=== PATIENT | female | born 1990 | race African-American/Black ===

== ENCOUNTER 2021-11-08 18:09 | Emergency (ER) | payer BC, MEDICAID, SELFPAY ==
--- NOTE | 2021-11-08 18:11 | ED.SKABFB ---
HPI - Skin/Abscess/Foreign Bdy General Chief complaint: Skin/Abscess/Foreign Body Stated complaint: itchy irratated skin from bite Time Seen by Provider: 11/08/21 18:11 Source: patient and RN notes reviewed History of Present Illness HPI narrative: Patient is a 31-year-old female who presents the urgent care with complaints of a bite to the posterior right shoulder. Patient states it happened last . States that she feels is gotten larger and more stinging and slightly tender . Patient states that she has not taken anything [id number] for her symptoms. No other acute complaints. No acute distress noted. Patient aware of the plan of care. Some parts of this dictation were generated by voice recognition software and may contain typographical and/or grammatical inaccuracies. Related Data Home Medications Medication Instructions Recorded Confirmed gabapentin 11/08/21 Allergies Allergy/AdvReac Type Severity Reaction Status Date / Time metoclopramide Allergy Intermediate Jittery Verified 09/06/14 11:25 doxycycline Allergy Unknown Verified 08/10/14 16:34 Review of Systems Review of Systems: CONSTITUTIONAL: Denies fever, chills, or sweats. EYES: Denies visual changes, redness, or discharge. ENT: Denies rhinorrhea, congestion, sore throat, or otalgia. CARDIOVASCULAR: Denies chest pain, palpitations, or edema. RESPIRATORY: Denies cough or dyspnea. GASTROINTESTINAL: Denies abdominal pain, nausea, vomiting, or diarrhea. GENITOURINARY: Denies dysuria or hematuria. SKIN: Reports of an insect bite to the posterior right shoulder MUSCULOSKELETAL: Denies back pain, joint pain, or myalgia. NEUROLOGIC: Denies headache, numbness, or weakness. All other systems reviewed are negative, except as documented in HPI. PMFSH Social History Social History Smoking status: Never smoker Alcohol intake: current Comments At the time of my signature, I reviewed and agree with the nursing past medical, surgical, social, and family history. There is no relevant family history pertinent to the patient complaint. Exam Narrative: GENERAL: This is a well-nourished, well-developed patient, in no apparent distress. HEAD: normocephalic, atraumatic. EYES: PERRL. Sclera clear/white. Vision is grossly intact. EARS: External ears normal NOSE: External nose normal with no obvious nasal discharge, nares without redness, no rhinorrhea. THROAT: Mucous membranes moist NECK: Neck supple CARDIOVASCULAR: Regular rate and rhythm without murmurs, gallops, or rubs. RESPIRATORY: Clear to auscultation. Breath sounds equal bilaterally. No wheezes, rales, or rhonchi. SKIN: 4x1cm raised blanching localized reaction to the posterior right shoulder NEURO: awake, alert, and oriented to person, place and time. There were no obvious focal neurologic abnormalities. EXTREMITIES: No clubbing, cyanosis, or edema. Course Course Level of Care: Express Care Visit Vital Signs Vital signs: Vital Signs Temperature 98.5 F 11/08/21 18:17 Pulse Rate 94 11/08/21 18:17 Respiratory Rate 16 11/08/21 18:17 Blood Pressure 148/95 H 11/08/21 18:17 Pulse Oximetry 100 11/08/21 18:17 Temperature 98.5 F 11/08/21 18:17 Pulse Rate 94 11/08/21 18:17 Respiratory Rate 16 11/08/21 18:17 Blood Pressure 148/95 H 11/08/21 18:17 Pulse Oximetry 100 11/08/21 18:17 Reviewed-patient is informed that they may have pre-hypertension or hypertension based on a blood pressure reading in the department. I recommend the patient call the primary care provider listed on their discharge instructions or a physician of their choice this week to arrange follow-up for further evaluation of possible pre-hypertension or hypertension. MDM - Skin/Abscess/Foreign Bdy MDM Narrative Medical decision making narrative: Advised the patient to use hydrocortisone and/or Benadryl cream to the area. Complete the steroid regimen as prescribed. Be sure to eat and drink wi
[2021-11-08 18:17] VITALS: BP 148/95; PULSE 94; RESP 16; TEMP 36.9; O2SAT 100
== END 2021-11-08 18:44 | disposition home or self-care (01) ==
PROVIDERS: Emergency Provider Nurse Practitioner Family
DX: S40.261A Insect bite (nonvenomous) of right shoulder, initial encounter (principal); W57.XXXA Bitten or stung by nonvenomous insect and other nonvenomous arthropods, initial encounter
CPT/HCPCS: 99203; G0463

== ENCOUNTER 2022-01-09 16:55 | Emergency (ER) | payer BC, MEDICAID, SELFPAY ==
[2022-01-09 17:07] VITALS: BP 116/77; PULSE 90; RESP 20; TEMP 36.6; O2SAT 100
--- NOTE | 2022-01-09 17:53 | ED.GENADULT ---
HPI - General Adult General Chief complaint: Extremity Problem,Nontraumatic Stated complaint: ANKLE PAIN/FEET SWELLING/EYE REDNESS Time Seen by Provider: 01/09/22 17:55 Source: patient, RN notes reviewed and old records reviewed Mode of arrival: ambulatory Limitations: no limitations History of Present Illness HPI narrative: 31 year old female who presents to [facility] care with complaints of bilateral leg swelling since Saturday with pain and firm area to the back of right lower leg that is increasingly painful with palpation. Patient denies any trauma to her right leg or known injury. Patient states that she was in the hospital at [facility] on the 03 of December with stroke. Patient reports that she had developed elevated blood pressure, double vision, spotty vision fatigue and light headedness. Patient states she has history of migraines and did see neurology outpatient for headaches while in [place]. Patient states that she completed PT/OT on the 01 of January has no motor deficit on either side of body. She states that her doctor just changed her migraine med to Ubrelvy and she has not yet picked it up. She states that she is not taking any blood thinner. She reports she was taken off of her Depo shots with concern could of related to her symptoms. Patient has taken Ibuprofen for her discomfort with no improvement. MD complaint: pain and swelling with firmness to right posterior right ankle, lower leg Onset (ago): day(s) (3) Severity scale (1-10): 5 Treatments prior to arrival: NSAID Related Data Home Medications Medication Instructions Recorded Confirmed amlodipine 5 mg tablet 5 mg PO DAILY 12/20/21 01/09/22 gabapentin 600 mg tablet 300 mg PO TID 12/20/21 01/09/22 multivitamin 1 tablet PO DAILY 12/20/21 01/09/22 Allergies Allergy/AdvReac Type Severity Reaction Status Date / Time doxycycline Allergy Unknown Rash Verified 01/09/22 21:38 Review of Systems Review of Systems: CONSTITUTIONAL: Denies fever, chills, or sweats. EYES: Denies visual changes, redness, or discharge. ENT: Denies rhinorrhea, congestion, sore throat, or otalgia. CARDIOVASCULAR: Denies chest pain, palpitations, or edema. RESPIRATORY: Denies cough or dyspnea. GASTROINTESTINAL: Denies abdominal pain, nausea, vomiting, or diarrhea. GENITOURINARY: Denies dysuria or hematuria. SKIN: Denies rash or itching. MUSCULOSKELETAL: Denies back pain, positive for pain to posterior aspect of right lower ankle region and lower leg with firmness noted no acute edema to lower extremities noted , myalgia. NEUROLOGIC: Denies headache, numbness, or weakness.moves all extremities on own power PSYCHIATRIC: Denies anxiety or depression. All systems reviewed & are unremarkable except as noted in HPI and below PMFSH Past Medical History Medical History GERD (gastroesophageal reflux disease) Hypertension Migraine Surgical History Surgical History History of appendectomy 2011 Family History Family History Son Asthma Grandparent Hypertension Lung cancer Mother Diabetes mellitus Hypertension Father Diabetes mellitus Hypertension Social History Social History Smoking status: Never smoker Alcohol intake: current Substance use: never Substance use type: does not use Comments At time of signature, agree with nursing past medical, surgical, social and family history. There is no relevant family history pertinent to the presenting complaint Exam Narrative: GENERAL: Well-appearing, well-nourished, and in no acute distress. HEAD: Normocephalic, atraumatic. EYES: PERRLA and EOMI. ENT: Nares clear, no rhinorrhea or epistaxis. Mucous membranes moist.TM's normal with good light reflex, throat pink with no swelling or lesions. NECK:
== END 2022-01-09 18:19 | disposition short-term general hospital (02) ==
PROVIDERS: Emergency Provider Registered Nurse; PCP Family Medicine
DX: M79.661 Pain in right lower leg (principal); M25.571 Pain in right ankle and joints of right foot; K21.9 Gastro-esophageal reflux disease without esophagitis; I10 Essential (primary) hypertension
CPT/HCPCS: 99212; G0463

== ENCOUNTER 2022-01-09 18:34 | Emergency (ER) | payer BC, MEDICAID, SELFPAY ==
--- NOTE | ~2022-01-09 | XR_ITS ---
EXAMINATION: XR chest 2V Exam Date/Time: 01/09/2022 19:20 CDT HISTORY: edema Comparison: None available. RESULT: Lines, tubes, and devices: None. Lungs and pleura: Clear. Cardiomediastinal silhouette: Unremarkable. Other: No acute osseous or upper abdominal finding. IMPRESSION: No acute cardiopulmonary process. Reviewed, dictated and finalized at location K.
[2022-01-09 18:40] VITALS: BP 144/82; PULSE 106; RESP 18; TEMP 36.8; O2SAT 100
[2022-01-09 20:33] LABS: Basophils Percent Auto 0.3 % (0.2-1.2); Eosinophils Absolute Auto 0.1 K/mm3 (0-0.3); Eosinophils Percent Auto 0.9 % (0-4.4); Hematocrit 41.2 % (37.0-47.0); Hemoglobin 13.7 g/dL (12.0-15.0); Immature Granulocyte Absolute 0.01 K/mm3 (0.00-0.031); Immature Granulocyte Percent A 0.1 % (0-0.5); Lymphocytes Absolute Auto 2.78 K/mm3 (0.9-3.2); Lymphocytes Percent Auto 39.8 % (18.3-44.2); Mean Corpuscular HGB Conc 33.3 g/dl (32-36); Mean Corpuscular Hemoglobin 30.5 pg (26-34); Mean Corpuscular Volume 91.8 fl (80-100); Mean Platelet Volume 8.8 fl (7.4-10.4); Monocytes Absolute Auto 0.4 K/mm3 (0.1-0.6); Monocytes Percent Auto 6.3 % (2.6-8.5); Neutrophils Absolute Auto 3.7 K/mm3 (1.3-6.7); Neutrophils Percent Auto 52.6 % (45.5-73.1); Platelet Count Result 357 k/mm3 (150-375); Red Blood Count 4.49 M/mm3 (4.2-5.4); Red Cell Distribution Width 12.2 % (11.5-14.5)
[2022-01-09 20:44] LABS: Partial Thromboplastin Time 28.2 SECONDS (22.3-36.8)
[2022-01-09 20:45] LABS: INR 1.1; Prothrombin Time 14.2 Seconds (11.1-14.7)
[2022-01-09 20:54] LABS: Anion Gap 11 mmol/L (8-16); Blood Urea Nitrogen 10 mg/dL (7-17); Calcium 9.4 mg/dL (8.4-10.2); Carbon Dioxide 25 mmol/L (22-30); Chloride 102 mmol/L (98-107); Estimated CRCL calculation 70 ml/min; Estimated Glomerular Filt Rate > 60; Glucose 105 mg/dL (65-110); Potassium 3.6 mmol/L (3.4-5.0); Sodium 138 mmol/L (137-145)
[2022-01-09 20:57] LABS: D Dimer 0.33 ug/mL (<0.48)
[2022-01-09 21:02] LABS: NT Pro B Type Natriuretic Pept 28 pg/mL (5-100)
[2022-01-09 21:04] LABS: Troponin I < 0.012 ng/mL (0.000-0.034)
--- NOTE | 2022-01-09 22:10 | ED.LOWEXIN ---
HPI - Extremity Injury (Lower) General Chief Complaint: Extremity Injury, Lower Stated Complaint: bilateral swollen legs Time Seen by Provider: 01/09/22 21:34 History of Present Illness HPI Narrative: Pt is a 31 y/o female, presents to ED via POV with bilateral ankle pain and swelling, after starting a new job two weeks ago that requires long hours walking. She denies blunt injury and she has no calf pain or swelling. The right Achilles region is TTP and the dorsal aspect of both feet are also painful. She has taken APAP and Motrin for pain without relief, prompting her visit. She has no additional complaints and she denies any other modifying factors. Related Data Home Medications Medication Instructions Recorded Confirmed amlodipine 5 mg tablet 5 mg PO DAILY 12/20/21 01/09/22 gabapentin 600 mg tablet 300 mg PO TID 12/20/21 01/09/22 multivitamin 1 tablet PO DAILY 12/20/21 01/09/22 Allergies Allergy/AdvReac Type Severity Reaction Status Date / Time doxycycline Allergy Unknown Rash Verified 01/09/22 21:38 Review of Systems Musculoskeletal: Comments: refer to [facility] Past Medical History Medical History GERD (gastroesophageal reflux disease) Hypertension Migraine Surgical History Surgical History History of appendectomy 2012 Family History Family History Son Asthma Grandparent Hypertension Lung cancer Mother Diabetes mellitus Hypertension Father Diabetes mellitus Hypertension Social History Social History Smoking status: Never smoker Alcohol intake: current Substance use: never Substance use type: does not use Exam Const: General: healthy appearing, no acute distress and alert Orientation/consciousness: patient oriented x3 Limitations: no limitations HENMT: Head: normal to inspection Eyes: Conjunctivae: conjunctivae normal EOM: EOMs intact bilaterally Direct Ophthalmoscopy: no photophobia Neck: Neck: normal visual inspection, no lymphadenopathy and no meningeal signs Resp: Effort & Inspection: normal respiratory effort Auscultation: clear to auscultation bilaterally Cardio: Rate: regular rate Rhythm: regular rhythm Other: HR 84 Skin: General skin exam: normal color Rashes: no rashes Wounds: no wounds Neuro: General: patient oriented x3, moves all extremities, no meningeal signs, no focal motor deficits and CN's II-XI intact bilaterally Cranial nerves: Yes Nystagmus not present Speech: normal speech Extrem: Other: Pt is TTP over the Achilles tendon insertion at the calcaneus bilaterally. There is no ROM deficit, no crepitus. No calf tenderness or swelling. The dorsal aspects of the feet are no longer swollen but patient reports tenderness is present; worse with weight bearing. Course Vital Signs Vital signs: Vital Signs Temperature 36.8 C 01/09/22 18:40 Pulse Rate 106 H 01/09/22 18:40 Respiratory Rate 18 01/09/22 18:40 Blood Pressure 144/82 H 01/09/22 18:40 Pulse Oximetry 100 01/09/22 18:40 Oxygen Delivery Room Air 01/09/22 18:40 Temperature 36.8 C 01/09/22 18:40 Pulse Rate 106 H 01/09/22 18:40 Respiratory Rate 18 01/09/22 18:40 Blood Pressure 144/82 H 01/09/22 18:40 Pulse Oximetry 100 01/09/22 18:40 Oxygen Delivery Room Air 01/09/22 18:40 MDM - Extremity Injury (Lower) MDM Narrative Medical decision making narrative: serum work up is unremarkable, negative D dimer, normal BNP, all other labs WNL. Plan to discharge home with NSAIDs, podiatry referral for FU, supportive shoes are stressed, RICE. Pt is agreeable with plan. Differential Diagnosis Differential diagnosis: Likely ankle sprain and strain and other Medical Records Medical records narrative: Achilles tendinitis Lab Data Res
== END 2022-01-09 22:38 | disposition home or self-care (01) ==
PROVIDERS: Emergency Medicine; Emergency Provider Nurse Practitioner Family; PCP Family Medicine
DX: M76.61 Achilles tendinitis, right leg (principal); K21.9 Gastro-esophageal reflux disease without esophagitis; I10 Essential (primary) hypertension
CPT/HCPCS: 36415; 71046; 80048; 83880; 84484; 85025; 85380; 85610; 85730; 99284

== ENCOUNTER 2022-05-02 15:43 | Outpatient (CLI) | payer BC, SELFPAY ==
[2022-05-02 19:32] LABS: Hemoglobin A1C 5.4 % (<5.7)
== END 2022-05-02 15:44 | disposition home or self-care (01) ==
LOC: ANHGOSHLAB 15:44
PROVIDERS: PCP Family Medicine; Visit Provider Family Medicine
DX: R73.9 Hyperglycemia, unspecified (principal)
CPT/HCPCS: 36415; 83036

== ENCOUNTER 2022-06-01 11:10 | Emergency (ER) | payer BC, SELFPAY ==
[2022-06-01 11:13] VITALS: BP 109/71; PULSE 70; RESP 16; TEMP 36.6; O2SAT 100
--- NOTE | 2022-06-01 11:38 | ED.RECABL ---
HPI - Recheck/Abnormal Lab/Rx General Chief Complaint: Recheck/Abnormal Lab/Rx Stated Complaint: covid testing Time Seen by Provider: 06/01/22 11:24 History of Present Illness HPI narrative: This is a 32-year-old female with past medical history of stroke and hypertension, presenting to the emergency department complaining of bilateral eye redness for the past 3 days. She states she also noted mild sore throat and some right-sided neck discomfort, upper respiratory congestion and mild cough. She denies fevers chills, difficulty breathing or vomiting. Related Data Home Medications Medication Instructions Recorded Confirmed amlodipine 5 mg tablet 5 mg PO DAILY 12/20/21 01/09/22 multivitamin 1 tablet PO DAILY 12/20/21 01/09/22 aspirin 81 mg tablet,delayed 81 mg PO DAILY 05/02/22 release (Aria Low Dose Aspirin) Allergies Allergy/AdvReac Type Severity Reaction Status Date / Time doxycycline Allergy Unknown Rash Verified 06/01/22 11:11 Review of Systems Review of Systems: CONSTITUTIONAL: Denies fever, chills, or sweats. EYES: Redness denies visual changes, or discharge. ENT: rhinorrhea, congestion, sore throat, Denies otalgia. CARDIOVASCULAR: Denies chest pain, palpitations, or edema. RESPIRATORY: Denies cough or dyspnea. GASTROINTESTINAL: Denies abdominal pain, nausea, vomiting, or diarrhea. GENITOURINARY: Denies dysuria or hematuria. SKIN: Denies rash or itching. MUSCULOSKELETAL: Denies back pain, joint pain, or myalgia. NEUROLOGIC: Denies headache, numbness, dizziness, or weakness. PSYCHIATRIC: Denies anxiety or depression. [facility] Past Medical History Medical History (Updated 06/01/22 @ 12:57 by Josep Burns MD) CVA (cerebral vascular accident) GERD (gastroesophageal reflux disease) Hypertension Migraine Surgical History Surgical History History of appendectomy 2011 Family History Family History Son Asthma Grandparent Hypertension Lung cancer Mother Diabetes mellitus Hypertension Father Diabetes mellitus Hypertension Social History Social History Smoking status: Never smoker Alcohol intake: current Substance use: never Substance use type: does not use Lack of Food: Never True Current Housing: I Have Housing Concerned About Future Housing: No Difficulty Paying Gas/Electric Bills: No Difficulty Paying for Meds: No Currently Unemployed: No Education: Master's Degree or Higher Difficulty w/ Childcare or Family Care: No Exam Narrative: GENERAL: Well-developed, well-nourished, and in no acute distress. HEAD: Normocephalic, atraumatic. EYES: PERRLA and EOMI. no scleral injection. No conjunctival injection. No drainage ENT: Nares clear, no rhinorrhea or epistaxis. Mucous membranes moist. Mild oropharyngeal erythema without tonsillar hypertrophy exudate or other lesions. Bilateral TMs pearly reyes nonbulging NECK: Supple. Mild anterior cervical lymphadenopathy on the right without any on the left. No masses. No carotid bruits or JVD CHEST: Clear to auscultation. No respiratory distress. No wheezes rales or rhonchi HEART: Regular rate and rhythm. No murmur heard. Normal peripheral pulses. ABDOMEN: Soft, nontender, nondistended, normal active bowel sounds. EXTREMITIES: Normal range of motion. No edema. SKIN: Warm, dry, no rash. NEURO: No focal deficits. Alert and oriented x3. PSYCH: Normal mood and affect. Course Course Emergency Course: 12:50 - Flu and COVID-negative. I suspect a viral upper respiratory infection. Discussed return emergent precautions including signs/symptoms of bacterial infection and respiratory distress. The patient voiced understanding and is comfortable with the plan. All questions answered to her satisfaction. Vital Signs Vital signs: Vital Signs Temperat
[2022-06-01 12:38] LABS: Influenza A QL RT-PCR Negative (Negative); Influenza B QL RT-PCR Negative (Negative); SARS-CoV-2 RNA PCR Negative
== END 2022-06-01 13:17 | disposition home or self-care (01) ==
LOC: ANHED 11:49
PROVIDERS: Emergency Provider Preventive Medicine Aerospace Medicine; PCP Family Medicine
DX: J06.9 Acute upper respiratory infection, unspecified (principal); Z20.822 Contact with and (suspected) exposure to COVID-19; I10 Essential (primary) hypertension; K21.9 Gastro-esophageal reflux disease without esophagitis; Z86.73 Personal history of transient ischemic attack (TIA), and cerebral infarction without residual deficits
CPT/HCPCS: 87636; 99283

== ENCOUNTER 2022-06-22 08:32 | Outpatient (CLI) | payer BC, SELFPAY ==
[2022-06-22 20:00] LABS: Alanine Aminotransferase 25 U/L (6-35); Aspartate Amino Transferase 31 U/L (14-36)
[2022-06-22 20:19] LABS: Beta HCG Quantitative < 2.39 mIU/ML
== END 2022-06-22 08:33 | disposition home or self-care (01) ==
LOC: ANHGOSHLAB 08:34
PROVIDERS: PCP Internal Medicine; Visit Provider Nurse Practitioner
DX: L50.9 Urticaria, unspecified (principal); L29.9 Pruritus, unspecified; N92.6 Irregular menstruation, unspecified
CPT/HCPCS: 36415; 84450; 84460; 84702

== ENCOUNTER 2022-08-11 08:58 | Outpatient (CLI) | payer BC, MEDICAID, SELFPAY ==
--- NOTE | 2022-08-11 09:05 | ECG_ITS ---
Measurements Intervals [place] Rate: 85 P: 72 MS: 152 QRS: 44 QRSD: 71 T: 48 QT: 381 QTc: 455 Interpretive Statements SINUS RHYTHM WITH SINUS ARRHYTHMIA BASELINE WANDER- I, II, AVR, AVL, AVF NORMAL ECG NO PREVIOUS ECG AVAILABLE FOR COMPARISON Electronically Signed On 08-11-2022 16:28:10 CDT by Jamel Hi D.O.
== END 2022-08-11 08:59 | disposition home or self-care (01) ==
PROVIDERS: PCP Internal Medicine; Visit Provider Anesthesiology
DX: I10 Essential (primary) hypertension (principal); Z01.818 Encounter for other preprocedural examination
CPT/HCPCS: 93005

== ENCOUNTER 2022-11-28 00:47 | Day surgery (SDC) | payer OTHER, SELFPAY ==
--- NOTE | 2022-11-26 14:23 | PC.NURSE ---
Report to the Outpatient Waiting Room, entrance under the green pavilion located off [facility], at time 0930 on date 11/28/22. Planned Procedure Time: 1130. Time changes happen often and if your time is changed the preop area will call you the afternoon before. - You and your visitor will be asked to self-screen and do not enter if you have any COVID symptoms. - A mask is optional within the hospital at this time. Patients may have clear liquids (water, carbonated beverages, clear teas, apple juice) until 3 hours prior to surgery with a maximum of 20 ounces. - No food from midnight until time of surgery Take the following medications with a SIP of water the morning of surgery: AMLODIPINE, GABAPENTIN, HYDROXYZINE, PROPRANOLOL DO NOT STOP ANY OF YOUR OTHER PRESCRIPTION MEDICATIONS PRIOR TO SURGERY ?EXCEPT THE FOLLOWING Medications to discontinue per physician: VITAMINS Date to take last dose: NO MORE UNTIL AFTER SURGERY FOLLOW DR. LIANG'S INSTRUCTIONS REGARDING ASPIRIN Please no make-up, nail angolan, hairspray, perfume, deodorant, or body powder the day of surgery. No jewelry (including any body piercings) or valuables the day of surgery, leave them at home. Please take a shower or bath the night before, or the morning of, surgery with an antibacterial soap. Wear comfortable, loose fitting clothing. - Jewelry must be removed prior to entering the operating room. Rings and piercings that are not removed may be cut off. - The hospital will not accept responsibility for valuables. - Please leave all valuables, including medications, at home the day of surgery. If you are going home after surgery, a licensed sales route driver helper must drive you home. - NO public transportation without another adult if you receive anesthesia. - We recommend that an adult stay with you for 24 hours following discharge. - We also recommend that you do not drive, make important decision, drink alcoholic beverages, or take any drugs that were not prescribed by your health care provider for at least 24 hours after your discharge time. Follow any additional instructions given to you from your surgeon. If you or anyone in your household have experienced Covid symptoms in the past week, please notify your surgeon or the nurse liaison at the phone number below for possible testing. Telephone instructions given to PT - JORDEN SEN and asked if any additional questions and then verbalized understanding. Patient advised to call surgeon office or pre surgery nurse liaison [phone] if any additional questions.
[2022-11-26 14:27] VITALS: BMI 34.0
[2022-11-28] VITALS (10 sets, daily range): BP systolic 99–110; BP diastolic 71–80; PULSE 58–81; RESP 12–20; TEMP 36.1–36.7; O2SAT 97–100
--- NOTE | 2022-11-28 10:08 | PM.IMHP ---
H&P: HPI History of Present Illness Date/Time: 11/28/22 10:08 Chief Complaint: Pelvic pain Narrative: this patient is a 32-year-old female with pelvic pain right ovarian cyst. We have agreed to perform laparoscopic right ovarian cystectomy. She understands that surgery has risk. She understands the procedure in detail. She understands that injuries may occur during the surgery that resulted in hospitalization, surgery, and severe illness. She understands there is risk of hemorrhage infection. She denies any chest pain shortness of breath. She denies any nausea, vomiting, fever, chills. She denies any vaginal bleeding or abnormal vaginal discharge. Review of Systems Review of Systems: All systems reviewed & are unremarkable except as noted in HPI and below Constitutional: Constitutional: Denies chills, Denies fatigue, Denies fever(s) and Denies weakness Eyes: Eyes: Denies blurry vision, Denies change in vision, Denies loss of peripheral vision, Denies loss of vision, Denies other visual disturbances and Denies eye pain ENT: Denies vertigo, Denies dizziness, Denies hearing loss, Denies mouth pain, Denies nasal obstruction, Denies neck mass and Denies neck pain Cardiovascular: Cardiovascular: Denies chest pain, Denies diaphoresis, Denies syncope, Denies leg edema and Denies dyspnea Respiratory: Respiratory: Denies chest congestion, Denies cough, Denies hemoptysis, Denies dyspnea and Denies wheezing Gastrointestinal: Gastrointestinal: Denies abdominal pain, Denies constipation, Denies diarrhea, Denies nausea and Denies vomiting Genitourinary: Genitourinary: Denies hematuria, Denies change in libido, Denies nocturia, Denies genital lesions, Denies flank pain and Denies urinary urgency Musculoskeletal: Musculoskeletal: Denies abnormal gait, Denies back pain, Denies myalgias, Denies arthralgias, Denies joint swelling, Denies muscle weakness and Denies neck pain Integumentary/Breasts: Skin/Breast: Denies swelling, Denies breast pain, Denies breast mass, Denies dry skin, Denies nipple discharge, Denies unusual bruising and Denies jaundice Neurologic: Denies Neuro-related abnormal movements, Denies Abnormal speech present, Denies abnormal gait, Denies behavioral changes, Denies confusion, Denies vertigo, Denies dizziness, Denies syncope, Denies loss of vision, Denies memory loss, Denies convulsions and Denies weakness Psychiatric: Psychiatric: Denies abnormal sleep pattern, Denies behavioral changes, Denies change in libido, Denies confusion, Denies depression, Denies anhedonia and Denies memory loss Endocrine: Endocrine: Reports no additional endocrine complaints, Denies change in libido and Denies fatigue Hematologic/Lymphatic: Hematologic/Lymphatic: Reports no additional hematologic/lymphatic complaints Allergic/Immunologic: Allergic/Immunologic: Reports no additional allergic/immunologic complaints and Denies wheezing PMFSH Past Medical History Medical History CVA (cerebral vascular accident) GERD (gastroesophageal reflux disease) Hypertension Migraine Surgical History Surgical History History of appendectomy 2012 Family History Family History Son Asthma Grandparent Hypertension Lung cancer Mother Diabetes mellitus Hypertension Father Diabetes mellitus Hypertension Social History Social History Smoking status: Never smoker Alcohol intake: current Alcohol use details: 2/MONTH Substance use: never Substance use type: does not use Lack of Transportation: No Lack of Food: Never True Current Housing: I Have Housing Concerned About Future Housing: No Difficulty Paying Gas/Electric Bills: No Difficulty Paying for Meds: No Currently Unemployed: No Education: [employer]
--- NOTE | 2022-11-28 10:10 | WPDHPUPDATE1 ---
History and Physical Update Update Date/Time: 11/28/22 10:10 History and Physical has been reviewed, including an updated exam of the patient. There are NO changes in the patient's condition. Risks, benefits, and alternatives have been discussed and questions answered. Patient agrees to proceed with procedure.
--- NOTE | 2022-11-28 10:10 | WPDANESEPPF ---
Anes - Initial Pre Proc Eval Procedure: Operation Date: 11/28/22 11:30 Proposed Procedures p Laparoscopic Right Ovarian Cystectomy, Hysteroscopy with Cyndee Endometrial Ablation - Ama Boland MD Date/Time: 11/28/22 10:10 Surgeon: Ama Boland MD Pre Op Diagnosis: Cyst Rt Ovary, Menorrhagia Patient Data Age: 32 Gender: F Height: 1.52 m Weight: 79 kg Allergies Allergy/AdvReac Type Severity Reaction Status Date / Time doxycycline Allergy Unknown Rash Verified 11/28/22 09:58 Home Medications Medication Instructions Recorded Confirmed Type multivitamin 1 tablet PO DAILY 12/20/21 11/28/22 History propranolol 20 mg tablet 20 mg PO Q12H #180 tabs 01/08/22 11/28/22 Rx ketoconazole 2 % shampoo 1 applic topical 3XW #120 mL 02/08/22 11/28/22 Rx aspirin 81 mg tablet,delayed 81 mg PO DAILY 05/02/22 11/28/22 History release (Aria Low Dose Aspirin) amlodipine 5 mg tablet 5 mg PO DAILY #90 tabs 06/09/22 11/28/22 Rx ubrogepant 100 mg tablet (Ubrelvy) 100 mg PO ONCE 06/22/22 11/28/22 History gabapentin 600 mg tablet 300 mg PO TID #135 tabs 07/09/22 11/28/22 Rx hydroxyzine HCl 25 mg tablet 25 mg PO QID PRN itching #120 tabs 08/09/22 11/28/22 Rx naproxen 500 mg tablet 500 mg PO BID #60 tabs 09/03/22 11/28/22 Rx Patient hx anesthesia problems: none Family hx anesthesia problems: none Results Review: All pre-operative results and documents have been reviewed as part of the pre-operative evaluation. [facility] Past Medical History Medical History CVA (cerebral vascular accident) GERD (gastroesophageal reflux disease) Hypertension Migraine Surgical History Surgical History History of appendectomy 2011 Family History Family History Son Asthma Grandparent Hypertension Lung cancer Mother Diabetes mellitus Hypertension Father Diabetes mellitus Hypertension Social History Social History Smoking status: Never smoker Alcohol intake: current Alcohol use details: 2/MONTH Substance use: never Substance use type: does not use Lack of Transportation: No Lack of Food: Never True Current Housing: I Have Housing Concerned About Future Housing: No Difficulty Paying Gas/Electric Bills: No Difficulty Paying for Meds: No Currently Unemployed: No Education: Master's Degree or Higher Difficulty w/ Childcare or Family Care: No Living arrangements: with family Spiritual care concerns: No Anes - Eval Final PreProcedure Day of Procedure 11/28/22 10:10 Patient weight: obese Heart: regular rate and rhythm Lungs: clear to auscultation Airway: Mallampati scale class II Neurological: alert and oriented Last oral intake: >/= 8 hours ASA classification: III Emergent: no Anesthetic plan: proceed Anesthesia type and monitoring: general ETT and standard monitoring Results Review: All pre-operative results and documents have been reviewed as part of the pre-operative evaluation. Informed Consent: The patient's anesthetic plan and its attendant risks and benefits were discussed with the patient/family/POA. Questions were solicited and answers provided to the satisfaction of the patient/family/POA.
[2022-11-28] MEDS: ACETAMINOPHEN 500 MG TABLET 1000 MG PO (10:18)
[2022-11-28] MEDS: KETOROLAC 15 MG/ML VIAL (*BKC) IV PUSH (10:18)
[2022-11-28] MEDS: LACTATED RINGERS 1,000 ML 30 ML IV CONT (10:18)
--- NOTE | 2022-11-28 11:36 | W.PM.PROC2 ---
Procedure Note - Detailed Date of Procedure 11/28/22 Pre-op Diagnosis Cyst Rt Ovary, Menorrhagia Post-op Diagnosis Same Procedure Performed Diagnostic laparoscopy Surgeon Ama Boland MD Anesthesia General Indications Pelvic pain Ovarian cyst Findings 4 cm right ovarian cyst. Otherwise normal pelvis. Description of Procedure The patient was taken to the operating room. She was prepped and draped in the dorsal lithotomy position after induction general anesthesia. A 5 mm incision was made with a scalpel on the abdominal skin in the left upper quadrant of the abdomen. A 5 mm trocar was inserted into the intra-abdominal cavity under direct visualization the scope. In the same fashion a 5 mm left lower quadrant trocar was inserted and a 5 mm infraumbilical trocar was inserted. Right ovarian cystectomy was performed using LigaSure cautery and monopolar cautery dome of the cyst capsule was removed, cyst capsule was peeled ovary and the cut surface of the ovary was cauterized and made hemostatic. Hematoma term this also applied to the cut surface. The pelvis was irrigated. The pneumoperitoneum was reduced. The trocars were removed. Skin was closed with subcuticular 4 micro. The patient's incisions were covered with Dermabond. She was taken recovery room in stable condition. Sponge lap and needle counts were correct x2. Estimated Blood Loss 25 Complications No immediate complications Condition Stable Disposition Same day
== END 2022-11-28 13:24 | disposition home or self-care (01) ==
PROVIDERS: PCP Family Medicine; Visit Provider Obstetrics & Gynecology
PROC: 0UDB8ZZ Extraction of Endometrium, Via Natural or Artificial Opening Endoscopic (ICD-10-PCS; CPT 58558; principal; 2022-11-28 11:30)
DX: N83.01 Follicular cyst of right ovary (principal); I10 Essential (primary) hypertension; K21.9 Gastro-esophageal reflux disease without esophagitis; Z86.73 Personal history of transient ischemic attack (TIA), and cerebral infarction without residual deficits; Z79.82 Long term (current) use of aspirin
CPT/HCPCS: 58662; 88305; A9270; J1100; J1170; J1885; J2250; J2405; J2704; J2710; J3010; J7030; J7120

== ENCOUNTER 2022-12-26 09:09 | Emergency (ER) | payer BC, OTHER, SELFPAY ==
[2022-12-26 09:18] VITALS: BP 105/75; PULSE 83; RESP 16; TEMP 36.2; O2SAT 100
--- NOTE | 2022-12-26 09:23 | ED.URI ---
HPI - URI/Sore Throat General Chief Complaint: Upper Respiratory Infection Stated Complaint: COUGH Time Seen by Provider: 12/26/22 09:24 Source: patient Mode of arrival: ambulatory Limitations: no limitations History of Present Illness HPI Narrative: Linette is a 32-year-old female patient presenting to the clinic today with complaints of a nonproductive cough, sore throat, and chills. No nasal congestion. She reports that the symptoms have been going on over the last week but is unable to give me an exact time frame as to when her symptoms began. No known sick contacts. Denies smoking or vaping. No history of asthma or COPD. History of bronchitis in the past. MD elicited complaint: cough and sore throat Related Data Home Medications Medication Instructions Recorded Confirmed multivitamin 1 tablet PO DAILY 12/20/21 12/26/22 aspirin 81 mg tablet,delayed 81 mg PO DAILY 05/02/22 12/26/22 release (Aria Low Dose Aspirin) ubrogepant 100 mg tablet (Ubrelvy) 100 mg PO ONCE 06/22/22 12/26/22 Allergies Allergy/AdvReac Type Severity Reaction Status Date / Time doxycycline Allergy Unknown Rash Verified 12/26/22 09:30 Review of Systems Review of Systems: Pertinent positives per HPI. Patient denies any fever, rash, headache, visual changes, dizziness, shortness of breath, chest pain, palpitations, nausea, vomiting, diarrhea, constipation, abdominal pain, or any urinary issues. [facility] Past Medical History Medical History CVA (cerebral vascular accident) GERD (gastroesophageal reflux disease) Hypertension Migraine Surgical History Surgical History History of appendectomy 2011 Family History Family History Son Asthma Grandparent Hypertension Lung cancer Mother Diabetes mellitus Hypertension Father Diabetes mellitus Hypertension Social History Social History Smoking status: Never smoker Alcohol intake: current Alcohol use details: 2/MONTH Substance use: never Substance use type: does not use Lack of Transportation: No Lack of Food: Never True Current Housing: I Have Housing Concerned About Future Housing: No Difficulty Paying Gas/Electric Bills: No Difficulty Paying for Meds: No Currently Unemployed: No Education: Master's Degree or Higher Difficulty w/ Childcare or Family Care: No Living arrangements: with family Spiritual care concerns: No Comments At the time of my signature, I reviewed and agree with the nursing past medical, surgical, social, and family history. There is no relevant family history pertinent to the patient complaint. Exam Narrative: General: Well-developed, well nourished, in no apparent distress Head: Normocephalic, atraumatic Eyes: Pupils equally round and reactive to light bilaterally, EOM intact, sclera and conjunctive clear, no discharge, lids normal Ears: TMs intact and clear, ear canals clear, no drainage, grossly hearing normal. Nose: Nares patent, clear nasal discharge, no inflammation, no sinus tenderness. Mouth: Oral pharynx without lesions or masses, good dentition, MMM. Neck: Supple, trachea midline, no enlargement of anterior or posterior cervical nodes, no thyroid masses or goiter palpable. Cardio: Regular rate and rhythm, s1 and s2 normal, no murmur appreciated. Resp: Clear to auscultation bilaterally, no rhonchi, rales, wheezing or rubs Course Course Emergency Course: Portions of this record may have been created with voice recognition software. Level of Care: Express Care Visit Vital Signs Vital signs: Vital Signs Temperature 36.2 C L 12/26/22 09:18 Pulse Rate 83 12/26/22 09:18 Respiratory Rate 16 12/26/22 09:18 Blood Pressure 105/75 12/26/22 0
== END 2022-12-26 09:50 | disposition home or self-care (01) ==
PROVIDERS: Emergency Provider Nurse Practitioner Family; PCP Family Medicine
DX: B34.9 Viral infection, unspecified (principal); R05.1 Acute cough; Z20.822 Contact with and (suspected) exposure to COVID-19; K21.9 Gastro-esophageal reflux disease without esophagitis; I10 Essential (primary) hypertension; Z86.73 Personal history of transient ischemic attack (TIA), and cerebral infarction without residual deficits
CPT/HCPCS: 87081; 87426; 87804; 87880; 99213; C9803; G0463

== ENCOUNTER 2023-05-15 11:01 | Outpatient (CLI) | payer BC, OTHER, SELFPAY ==
[2023-05-15 11:40] LABS: Basophils Percent Auto 0.3 % (0.2-1.2); Eosinophils Absolute Auto 0.1 K/mm3 (0-0.3); Eosinophils Percent Auto 1.3 % (0-4.4); Hematocrit 42.5 % (37.0-47.0); Hemoglobin 13.7 g/dL (12.0-15.0); Immature Granulocyte Absolute 0.01 K/mm3 (0.00-0.031); Immature Granulocyte Percent A 0.2 % (0-0.5); Lymphocytes Percent Auto 43.6 % (18.3-44.2); Mean Corpuscular HGB Conc 32.2 g/dl (32-36); Mean Corpuscular Hemoglobin 29.6 pg (26-34); Mean Corpuscular Volume 91.8 fl (80-100); Mean Platelet Volume 8.9 fl (7.4-10.4); Monocytes Absolute Auto 0.4 K/mm3 (0.1-0.6); Monocytes Percent Auto 6.7 % (2.6-8.5); Neutrophils Absolute Auto 2.9 K/mm3 (1.3-6.7); Neutrophils Percent Auto 47.9 % (45.5-73.1); Platelet Count Result 351 k/mm3 (150-375); Red Blood Count 4.63 M/mm3 (4.2-5.4); Red Cell Distribution Width 12.7 % (11.5-14.5)
[2023-05-15 11:57] LABS: Alanine Aminotransferase 21 U/L (6-35); Albumin Level 4.2 g/dL (3.5-5.1); Alkaline Phosphatase 103 U/L (38-126); Anion Gap 9 mmol/L (8-16); Aspartate Amino Transferase 25 U/L (14-36); Bilirubin,Total 0.4 mg/dL (0.2-1.3); Blood Urea Nitrogen 10 mg/dL (7-17); Calcium 9.2 mg/dL (8.4-10.2); Carbon Dioxide 26 mmol/L (22-30); Chloride 102 mmol/L (98-107); Cholesterol 159 mg/dL (0-200); Estimated Glomerular Filt Rate > 60; Glucose 83 mg/dL (65-110); HDL Direct 36 mg/dL; Potassium 3.9 mmol/L (3.4-5.0); Sodium 137 mmol/L (137-145); Triglycerides 117 mg/dL (<150)
[2023-05-15 12:08] LABS: LDL Cholesterol Direct 79 mg/dL
[2023-05-15 12:41] LABS: Vitamin D 25 Hydroxy 20.3 ng/mL
[2023-05-15 12:55] LABS: Hemoglobin A1C 5.1 % (<5.7)
[2023-05-17 12:22] LABS: NIL 0.05 IU/mL; Quantiferon TB Plus, 1T NEGATIVE (NEGATIVE); TB1-NIL 0.02 IU/mL; TB2-NIL 0.01 IU/mL
== END 2023-05-15 11:02 | disposition home or self-care (01) ==
LOC: ANHLAB 11:03
PROVIDERS: PCP Internal Medicine; Visit Provider Clinical Nurse Specialist
DX: Z13.228 Encounter for screening for other metabolic disorders (principal); E55.9 Vitamin D deficiency, unspecified; R73.9 Hyperglycemia, unspecified; I10 Essential (primary) hypertension; Z11.1 Encounter for screening for respiratory tuberculosis
CPT/HCPCS: 36415; 80053; 80061; 82306; 83036; 84443; 85025; 86480

== ENCOUNTER 2023-06-27 17:27 | Emergency (ER) | payer BC, OTHER, SELFPAY ==
[2023-06-27 17:45] VITALS: BP 120/89; PULSE 99; RESP 16; TEMP 37.2; O2SAT 100
--- NOTE | 2023-06-27 18:13 | ED.GENADULT ---
HPI - General Adult General Chief complaint: Upper Respiratory Infection Stated complaint: Cough;Migraine Source: patient, RN notes reviewed and old records reviewed Mode of arrival: ambulatory Limitations: no limitations History of Present Illness HPI narrative: 33-year-old female presents to [facility] with complaint of headache, myalgia, cough, congestion cold fatigue this started on Saturday. Patient is not taking any [id number] med patients. Patient denies chest pain, dizziness Related Data Home Medications Medication Instructions Recorded Confirmed multivitamin 1 tablet PO DAILY 12/20/21 06/27/23 propranolol 20 mg tablet 20 mg PO DAILY 05/15/23 06/27/23 Allergies Allergy/AdvReac Type Severity Reaction Status Date / Time doxycycline Allergy Unknown Rash Verified 06/27/23 17:45 Review of Systems Constitutional: Constitutional: Reports no additional constitutional complaints, Reports body ache(s), Denies chills, Reports fatigue, Denies fever(s) and Denies headache(s) Eyes: Eyes: Reports no additional eye complaints and Denies blurry vision ENT: Reports system reviewed and no additional complaints, except as documented, Denies vertigo, Denies dizziness, Denies ear discharge, Denies otalgia, Denies facial pain, Reports headache(s), Reports nasal congestion, Reports nasal discharge, Denies sinus pain, Denies sinus pressure and Denies sore throat Cardiovascular: Cardiovascular: Reports no additional cardiovascular complaints, Denies chest pain, Denies chest pain at rest, Denies rapid heart rate and Denies dyspnea Respiratory: Respiratory: Reports no additional respiratory complaints, Denies chest congestion, Reports cough, Denies pain on inspiration, Denies pain with cough and Denies dyspnea Gastrointestinal: Gastrointestinal: Denies abdominal pain, Denies diarrhea, Denies nausea and Denies vomiting Integumentary/Breasts: Skin/Breast: Denies rash Neurologic: Reports system reviewed and no additional complaints, except as documented, Denies vertigo, Denies dizziness and Denies headache(s) Endocrine: Endocrine: Denies fatigue [facility] Past Medical History Medical History CVA (cerebral vascular accident) GERD (gastroesophageal reflux disease) Hypertension Migraine Pelvic floor dysfunction in female Stress bladder incontinence, female Surgical History Surgical History History of appendectomy 2011 Family History Family History Son Asthma Grandparent Hypertension Lung cancer Mother Diabetes mellitus Hypertension Father Diabetes mellitus Hypertension Social History Social History Social History: Caffeine-daily Smoking status: Never smoker Alcohol intake: current Alcohol use details: Social Substance use: never Substance use type: does not use Lack of Transportation: No Lack of Food: Often True Current Housing: I Have Housing Concerned About Future Housing: No Difficulty Paying Gas/Electric Bills: No Difficulty Paying for Meds: No Currently Unemployed: No Education: Master's Degree or Higher Difficulty w/ Childcare or Family Care: No Living arrangements: with family Spiritual care concerns: No Comments At the time of my signature, I reviewed and agree with the nursing past medical, surgical, social, and family history. There is no relevant family history pertinent to the patient complaint. Exam Const: General: cooperative, healthy appearing, no acute distress and well nourished Nutritional Appearance: well nourished Orientation/consciousness: patient oriented x3 Limitations: no limitations HENMT: Head: normal to inspection and normocephalic Ears: external ears normal, TM's normal bilaterally, mastoids normal and Abnormal EAC pr
== END 2023-06-27 18:22 | disposition home or self-care (01) ==
PROVIDERS: Emergency Provider Registered Nurse; PCP Clinical Nurse Specialist
DX: B34.9 Viral infection, unspecified (principal); I10 Essential (primary) hypertension; Z79.899 Other long term (current) drug therapy; Z86.73 Personal history of transient ischemic attack (TIA), and cerebral infarction without residual deficits; Z20.822 Contact with and (suspected) exposure to COVID-19
CPT/HCPCS: 87081; 87426; 87804; 87880; 99213; G0463

== ENCOUNTER 2023-07-01 18:53 | Emergency (ER) | payer BC, OTHER, SELFPAY ==
--- NOTE | ~2023-07-01 | XR_ITS ---
EXAMINATION: XR chest 2V DATE: 07/01/2023 20:45 INDICATION: Chest pain TECHNIQUE: PA and lateral views of the chest were obtained. COMPARISON: Chest radiograph dated 01/09/2022 FINDINGS: The lungs remain clear with no focal airspace opacities, pulmonary edema, pleural effusion or pneumot horax. The cardiomediastinal silhouette is normal. Mild lower thoracic levocurvature. IMPRESSION: 1. No acute cardiopulmonary disease. Reviewed, dictated and finalized at location [employer]. [employer]
[2023-07-01 18:53] VITALS: BP 118/82; PULSE 80; RESP 16; TEMP 36.6; O2SAT 100
--- NOTE | 2023-07-01 18:59 | ECG_ITS ---
Measurements Intervals [place] Rate: 90 P: 59 WV: 152 QRS: 7 QRSD: 79 T: 46 QT: 333 QTc: 409 Interpretive Statements SINUS RHYTHM COMPARED TO ECG 08/11/2022 09:12:52 NO SIGNIFICANT CHANGES Electronically Signed On 07-02-2023 14:56:41 [employer]PERATIONS VICE PRESIDENT by Bar Alejandre M.D.
[2023-07-01 20:33] VITALS: BP 116/80; PULSE 108; RESP 17; TEMP 36.8; O2SAT 99
--- NOTE | 2023-07-01 21:00 | ED.URI ---
HPI - URI/Sore Throat General Chief Complaint: Upper Respiratory Infection Stated Complaint: lost her voice Time Seen by Provider: 07/01/23 20:33 Source: patient Mode of arrival: ambulatory Limitations: no limitations History of Present Illness HPI Narrative: This is a 33 year old female that presents to the ER for cold symptoms present over the last week. Reports cough, congestion, wheezing and sore throat. Reports chest pain with coughing. Denies fevers. Related Data Home Medications Medication Instructions Recorded Confirmed multivitamin 1 tablet PO DAILY 12/20/21 06/27/23 propranolol 20 mg tablet 20 mg PO DAILY 05/15/23 06/27/23 Allergies Allergy/AdvReac Type Severity Reaction Status Date / Time doxycycline Allergy Unknown Rash Verified 06/27/23 17:45 Review of Systems Review of Systems: CONSTITUTIONAL: Denies fever ENT: Reports rhinorrhea, congestion, sore throat CARDIOVASCULAR: Reports chest pain. Denies edema. RESPIRATORY: Reports cough and dyspnea. All systems reviewed & are unremarkable except as noted in HPI and below PMFSH Past Medical History Medical History CVA (cerebral vascular accident) GERD (gastroesophageal reflux disease) Hypertension Migraine Pelvic floor dysfunction in female Stress bladder incontinence, female Surgical History Surgical History History of appendectomy 2011 Family History Family History Son Asthma Grandparent Hypertension Lung cancer Mother Diabetes mellitus Hypertension Father Diabetes mellitus Hypertension Social History Social History Social History: Caffeine-daily Smoking status: Never smoker Alcohol intake: current Alcohol use details: Social Substance use: never Substance use type: does not use Lack of Transportation: No Lack of Food: Often True Current Housing: I Have Housing Concerned About Future Housing: No Difficulty Paying Gas/Electric Bills: No Difficulty Paying for Meds: No Currently Unemployed: No Education: Master's Degree or Higher Difficulty w/ Childcare or Family Care: No Living arrangements: with family Spiritual care concerns: No Exam Narrative: GENERAL: Well-appearing, well-nourished, and in no acute distress. HEAD: Normocephalic, atraumatic. EYES: EOMI. ENT: Nares clear, no rhinorrhea or epistaxis. Mucous membranes moist. Oropharynx without tonsillar hypertrophy exudate or other lesions. Bilateral TMs pearly reyes non-bulging NECK: Supple. No adenopathy or masses. CHEST: Clear to auscultation. No respiratory distress. No wheezes rales or rhonchi HEART: Regular rate and rhythm. No murmur heard. Normal peripheral pulses. EXTREMITIES: Normal range of motion. No edema. SKIN: Warm, dry, no rash. NEURO: No focal deficits. Alert and oriented x3. PSYCH: Normal mood and affect Course Course Emergency Course: Patient updated on her workup and agrees with plan of care. Vital Signs Vital signs: Vital Signs Temperature 98 F 07/01/23 18:53 Pulse Rate 80 07/01/23 18:53 Respiratory Rate 16 07/01/23 18:53 Blood Pressure 118/82 07/01/23 18:53 Pulse Oximetry 100 07/01/23 18:53 Oxygen Delivery Room Air 07/01/23 18:53 Temperature 98.3 F 07/01/23 20:33 Pulse Rate 108 H 07/01/23 20:33 Respiratory Rate 17 07/01/23 20:33 Blood Pressure 116/80 07/01/23 20:33 Pulse Oximetry 99 07/01/23 20:33 Oxygen Delivery Room Air 07/01/23 20:33 MDM - URI/Sore Throat MDM Narrative Medical decision making narrative: Patient presents to the ER for cold symptoms present over the last week. Reports cough, wheezing, congestion and sore throat. Patient is afebrile and nontoxic appearing. Her vitals are stable. Lungs are clear on exam. CBC w
[2023-07-01] MEDS: ALBUTEROL SULFATE (*SP) AEROSOL 1 PUFF 2 PUFF INHALATION (21:35)
[2023-07-01 21:40] LABS: Basophils Percent Auto 0.2 % (0.2-1.2); Eosinophils Percent Auto 0.2 % (0-4.4); Hematocrit 42.4 % (37.0-47.0); Hemoglobin 13.9 g/dL (12.0-15.0); Immature Granulocyte Absolute 0.01 K/mm3 (0.00-0.031); Immature Granulocyte Percent A 0.2 % (0-0.5); Lymphocytes Absolute Auto 2.17 K/mm3 (0.9-3.2); Lymphocytes Percent Auto 44.8 % (18.3-44.2); Mean Corpuscular HGB Conc 32.8 g/dl (32-36); Mean Corpuscular Hemoglobin 29.8 pg (26-34); Mean Platelet Volume 8.5 fl (7.4-10.4); Monocytes Absolute Auto 0.4 K/mm3 (0.1-0.6); Monocytes Percent Auto 9.1 % (2.6-8.5); Neutrophils Absolute Auto 2.2 K/mm3 (1.3-6.7); Neutrophils Percent Auto 45.5 % (45.5-73.1); Platelet Count Result 303 k/mm3 (150-375); Red Blood Count 4.66 M/mm3 (4.2-5.4); Red Cell Distribution Width 12.5 % (11.5-14.5); White Blood Count 4.8 K/mm3 (4.5-10.0)
[2023-07-01 21:46] LABS: Strep Group A RT-PCR NOT DETECTED (Negative)
[2023-07-01 21:57] LABS: Influenza A QL RT-PCR Negative (Negative); Influenza B QL RT-PCR Positive (Negative); RSV RNA, RT-PCR Negative (Negative); SARS-CoV-2 RNA PCR Negative (Negative)
[2023-07-01 21:59] LABS: Alanine Aminotransferase 21 U/L (6-35); Albumin Level 4.3 g/dL (3.5-5.1); Alkaline Phosphatase 93 U/L (38-126); Anion Gap 8 mmol/L (8-16); Aspartate Amino Transferase 34 U/L (14-36); Bilirubin,Total 0.4 mg/dL (0.2-1.3); Blood Urea Nitrogen 9 mg/dL (7-17); Calcium 8.7 mg/dL (8.4-10.2); Carbon Dioxide 26 mmol/L (22-30); Chloride 102 mmol/L (98-107); Estimated CRCL calculation 94 ml/min; Estimated Glomerular Filt Rate > 60; Glucose 102 mg/dL (65-110); Potassium 3.9 mmol/L (3.4-5.0); Sodium 136 mmol/L (137-145)
[2023-07-01 22:06] LABS: Troponin I < 0.012 ng/mL (0.000-0.034)
[2023-07-01 22:53] VITALS: PULSE 91; RESP 15; O2SAT 100
== END 2023-07-01 23:07 | disposition home or self-care (01) ==
PROVIDERS: Emergency Provider Physician Assistant; PCP Clinical Nurse Specialist
DX: J10.1 Influenza due to other identified influenza virus with other respiratory manifestations (principal); Z20.822 Contact with and (suspected) exposure to COVID-19; I10 Essential (primary) hypertension; N39.3 Stress incontinence (female) (male); K21.9 Gastro-esophageal reflux disease without esophagitis; Z86.73 Personal history of transient ischemic attack (TIA), and cerebral infarction without residual deficits
CPT/HCPCS: 36415; 71046; 80053; 84484; 85025; 87637; 87651; 93005; 94664; 99284; A9270

== ENCOUNTER 2023-09-07 20:19 | Emergency (ER) | payer BC, MEDICAID, SELFPAY ==
--- NOTE | ~2023-09-07 | CT_ITS ---
EXAMINATION: CT brain wo con DATE: 09/07/2023 21:29 INDICATION: bilateral arm numbness, headache . TECHNIQUE: Computed tomography (CT) of the head was performed without intravenous contrast. The mA wa s adjusted according to patient size. Iterative reconstruction technique was employed. The dose-lengt h product was 605.33 mGy-cm. COMPARISON: None. FINDINGS: No acute intracranial hemorrhage or extra-axial fluid collection. No hydrocephalus, mass, or herniation. No acute ischemic infarct. Unremarkable dural venous sinus attenuation. No acute osseous abnormality. The aerated spaces are clear. Partially empty sella. IMPRESSION: No acute intracranial process. Reviewed, dictated and finalized at location K.
[2023-09-07 20:26] VITALS: BP 119/79; PULSE 89; RESP 18; TEMP 36.7; O2SAT 100
--- NOTE | 2023-09-07 20:44 | ED_ITS ---
HPI - General Adult General Chief complaint: Unspecified Stated complaint: face feels tight, and hearing popping sounds Time Seen by Provider: 09/07/23 20:23 Source: patient Mode of arrival: ambulatory Limitations: no limitations History of Present Illness HPI narrative: This is a 33-year-old female who presents to the ED with multiple complaints. Reports that she has had issues with her blood pressure being high and feels that she has a headache. Reports tightness in her head. Describes a popping sensation in her head that she can here. When asked about this she says she thinks she hears it in the middle of her head and does not hear it in her ears. She reports bilateral upper and lower extremity tingling as well as whole body weakness intermittently. Also states that her blood sugar was 154 which concerned her. She reports a previous CVA in 2021 and became anxious that her symptoms represented a stroke. Reports all these symptoms started 2:00 p.m. yesterday. States she no longer follows up with neurologist and does not take her statin even though she is supposed to. When asked about vision changes, reports that she thought that her daughter had drawn something on the wall earlier but nothing was there. Denies any current vision problem or diplopia. Denies fevers, chills, neck pain, shortness of breath, chest pain, syncope, slurred speech, dizziness. Related Data Home Medications Medication Instructions Recorded Confirmed multivitamin 1 tablet PO DAILY 12/20/21 06/27/23 propranolol 20 mg tablet 20 mg PO DAILY 05/15/23 06/27/23 Allergies Allergy/AdvReac Type Severity Reaction Status Date / Time doxycycline Allergy Unknown Rash Verified 09/07/23 20:30 Review of Systems Review of Systems: All systems as dictated in [facility] Past Medical History Medical History CVA (cerebral vascular accident) GERD (gastroesophageal reflux disease) Hypertension Migraine Pelvic floor dysfunction in female Stress bladder incontinence, female Surgical History Surgical History History of appendectomy 2011 Family History Family History Son Asthma Grandparent Hypertension Lung cancer Mother Diabetes mellitus Hypertension Father Diabetes mellitus Hypertension Social History Social History Social History: Caffeine-daily Smoking status: Never smoker Alcohol intake: current Alcohol use details: Social Substance use: never Substance use type: does not use Lack of Transportation: No Lack of Food: Often True Current Housing: I Have Housing Concerned About Future Housing: No Difficulty Paying Gas/Electric Bills: No Difficulty Paying for Meds: No Currently Unemployed: No Education: Master's Degree or Higher Difficulty w/ Childcare or Family Care: No Living arrangements: with family Spiritual care concerns: No Exam Narrative: GENERAL: Well-appearing, well-nourished, and in no acute distress. HEAD: Normocephalic, atraumatic. Scalp tenderness present EYES: PERRLA and EOMI. ENT: Nares clear, no rhinorrhea or epistaxis. Mucous membranes moist. Oropharynx without tonsillar hypertrophy exudate or other lesions. NECK: Supple. No adenopathy or masses. CHEST: No respiratory distress. Clear to auscultation. No wheezes rales or rhonchi HEART: Regular rate and rhythm. No murmur heard. Normal peripheral pulses. ABDOMEN: Soft, nontender, nondistended, normal active bowel sounds. MSK: Normal range of motion. No edema. SKIN: Warm, dry, no rash. NEURO: Alert and oriented x4. No nystagmus. No dysarthria. Cranial nerves 2- 12 intact. 5/5 strength and sensation in the upper and lower extremities. Negative pronator drift. Normal finger-nose bilaterally. Normal heel-pringle. Ambulatory without difficulty PSYCH: Normal mood and affect. Course Course Emergency Course: Re-evaluation 2300: Patient is feeling much improved. Ready to go home Vital Signs Vital signs: Vital Signs Temperature 98.1 F 09/07/23 20: Pulse Rate 89 09/07/23 20: Respiratory Rate 18 09/07/23 20: Blood Pressure 119/79 09/07/23 20: Pulse Oximetry 100 09/07/23 20: Oxygen Delivery Room Air 09/07/23 20: Temperature 98.1 F 09/07/23 20: Pulse Rate 89 09/07/23 20: Respiratory Rate 18 09/07/23 20: Blood Pressure 119/79 09/07/23 20:26 Pulse Oximetry 100 09/07/23 20:26 Oxygen Delivery Room Air 09/07/23 20:26 Medical Decision Making MDM Narrative Medical decision making narrative: This is a 33-year-old female who presents to the ED with multiple complaints. See HPI for details. She was concern for possible stroke with last known well time 2:00 p.m. yesterday. Vitals are normal. Neurologic exam is grossly intact. Symptoms and presentation most likely consistent with migraine. Lab work unremarkable. CT brain non con unremarkable. She was given migraine cocktail with good effect. She exhibiting no signs of CVA or TIA. She she is not a candidate for thrombolytics in any way. She feels ready to go home on re- evaluation. Pt will be discharged in stable condition. Return precautions given and supportive measures discussed. Pt is understanding and agreeable with plan for discharge and follow-up with PCP. Vital Signs Vital Signs: Vital Signs Temperature 98.1 F 09/07/23 20:26 Pulse Rate 89 09/07/23 20:26 Respiratory Rate 18 09/07/23 20:26 Blood Pressure 119/79 09/07/23 20:26 Pulse Oximetry 100 09/07/23 20:26 Oxygen Delivery Room Air 09/07/23 20:26 Temperature 98.1 F 09/07/23 20:26 Pulse Rate 89 09/07/23 20:26 Respiratory Rate 18 09/07/23 20:26 Blood Pressure 119/79 09/07/23 20:26 Pulse Oximetry 100 09/07/23 20:26 Oxygen Delivery Room Air 09/07/23 20:26 Discharge Plan Discharge Clinical Impression: Migraine Patient Disposition: Home, Self-Care Condition: Stable Instructions: Antibiotic Form Additional Instructions: Your exam and imaging today are reassuring overall. Please follow-up with your regular doctor. You will likely need to see a neurologist for complex migraines. If you feel any headache or migraine symptoms come on, immediately take 600 mg of ibuprofen. If you have any new or worsening symptoms please return to the ER for further evaluation. Prescriptions: No Action promethazine-DM 6.25-15 mg/5 mL syrup 5 ml PO Q4-6H PRN (Reason: cough) Qty: 118 0RF multivitamin Tablet 1 tablet PO DAILY propranolol 20 mg tablet 20 mg PO DAILY methylprednisolone 4 mg tablets,dose pack See Rx Instructions .ROUTE .COMPLEX Qty: 21 0RF Rx Instructions: orally per package directions albuterol sulfate 90 mcg/actuation HFA aerosol inhaler 2 puff inhalation QID PRN (Reason: shortness of breath or wheezing) Qty: 8.5 0RF cholecalciferol (vitamin D3) 1,250 mcg (50,000 unit) tablet 1,250 mcg PO WEEKLY Qty: 8 0RF amlodipine 5 mg tablet 5 mg PO DAILY Qty: 90 3RF hydroxyzine HCl 25 mg tablet 25 mg PO QID PRN (Reason: itching) Qty: 120 1RF ketoconazole 2 % shampoo 1 applic topical 3XW PRN (Reason: dermatitis) Qty: 120 0RF aspirin [Aria Low Dose Aspirin] 81 mg tablet,delayed release (DR/EC) 81 mg PO DAILY Qty: 90 1RF naproxen 500 mg tablet 500 mg PO BID Qty: 60 1RF Patient Comments: PRN Rx Instructions: Take with food albuterol sulfate 90 mcg/actuation HFA aerosol inhaler 1 puff inhalation Q4H PRN (Reason: shortness of breath or wheezing) Qty: 8.5 0RF Ubrelvy 100 mg tablet 100 mg PO ONCE PRN (Reason: Migraines) Qty: 14 0RF Follow-up/Referrals: Lucille Guillermo, [employer] CHIEF-C [Primary Care Provider] - Bridgette Pearce MD [Physician] - Time of Disposition: 22:53
[2023-09-07] MEDS: PROCHLORPERAZINE MALEATE 5 MG TABLET 10 MG PO (21:35)
[2023-09-07 21:36] VITALS: BP 132/86; PULSE 91; RESP 17; O2SAT 100
[2023-09-07] MEDS: KETOROLAC 10 MG TABLET PO (21:36)
[2023-09-07] MEDS: diphenhydrAMINE HCl CAP 25 MG CAPSULE 50 MG PO (21:40)
[2023-09-07 21:41] VITALS: BP 132/86; PULSE 99; RESP 21; O2SAT 98
[2023-09-07 22:04] LABS: Basophils Percent Auto 0.4 % (0.2-1.2); Eosinophils Absolute Auto 0.1 K/mm3 (0-0.3); Eosinophils Percent Auto 1.8 % (0-4.4); Hematocrit 41.5 % (37.0-47.0); Hemoglobin 13.7 g/dL (12.0-15.0); Immature Granulocyte Absolute 0.02 K/mm3 (0.00-0.031); Immature Granulocyte Percent A 0.3 % (0-0.5); Immature Platelet Fraction Pct 1.2 % (0.9-11.2); Lymphocytes Absolute Auto 3.36 K/mm3 (0.9-3.2); Lymphocytes Percent Auto 46.5 % (18.3-44.2); Mean Corpuscular Hemoglobin 30.5 pg (26-34); Mean Corpuscular Volume 92.4 fl (80-100); Mean Platelet Volume 8.9 fl (7.4-10.4); Monocytes Absolute Auto 0.5 K/mm3 (0.1-0.6); Monocytes Percent Auto 7.3 % (2.6-8.5); Neutrophils Absolute Auto 3.2 K/mm3 (1.3-6.7); Neutrophils Percent Auto 43.7 % (45.5-73.1); Platelet Count Result 311 k/mm3 (150-375); Red Blood Count 4.49 M/mm3 (4.2-5.4); Red Cell Distribution Width 12.4 % (11.5-14.5); White Blood Count 7.2 K/mm3 (4.5-10.0)
[2023-09-07 22:54] VITALS: BP 115/74; PULSE 78; RESP 13; O2SAT 100
== END 2023-09-07 23:00 | disposition home or self-care (01) ==
PROVIDERS: Emergency Provider Physician Assistant; PCP Clinical Nurse Specialist
DX: G43.909 Migraine, unspecified, not intractable, without status migrainosus (principal); I10 Essential (primary) hypertension; K21.9 Gastro-esophageal reflux disease without esophagitis; N39.3 Stress incontinence (female) (male); Z86.73 Personal history of transient ischemic attack (TIA), and cerebral infarction without residual deficits
CPT/HCPCS: 36415; 70450; 80053; 85025; 85055; 99284; A9270

== ENCOUNTER 2024-05-15 10:21 | Outpatient (CLI) | payer BC, MEDICAID, SELFPAY ==
[2024-05-15 11:55] LABS: Basophils Percent Auto 0.3 % (0.2-1.2); Eosinophils Percent Auto 0.7 % (0-4.4); Hematocrit 43.1 % (37.0-47.0); Hemoglobin 14.2 g/dL (12.0-15.0); Immature Granulocyte Absolute 0.01 K/mm3 (0.00-0.031); Immature Granulocyte Percent A 0.2 % (0-0.5); Lymphocytes Absolute Auto 2.83 K/mm3 (0.9-3.2); Lymphocytes Percent Auto 48.7 % (18.3-44.2); Mean Corpuscular HGB Conc 32.9 g/dl (32-36); Mean Corpuscular Hemoglobin 30.2 pg (26-34); Mean Corpuscular Volume 91.7 fl (80-100); Monocytes Absolute Auto 0.4 K/mm3 (0.1-0.6); Monocytes Percent Auto 6.5 % (2.6-8.5); Neutrophils Absolute Auto 2.5 K/mm3 (1.3-6.7); Neutrophils Percent Auto 43.6 % (45.5-73.1); Platelet Count Result 350 k/mm3 (150-375); Red Cell Distribution Width 12.2 % (11.5-14.5); White Blood Count 5.8 K/mm3 (4.5-10.0)
[2024-05-15 12:06] LABS: Alanine Aminotransferase 18 U/L (6-35); Alkaline Phosphatase 88 U/L (38-126); Anion Gap 3 mmol/L (4-12); Aspartate Amino Transferase 49 U/L (14-36); Bilirubin,Total 0.4 mg/dL (0.2-1.3); Blood Urea Nitrogen 9 mg/dL (7-17); Carbon Dioxide 27 mmol/L (22-30); Chloride 105 mmol/L (98-107); Cholesterol 151 mg/dL (0-200); Estimated Glomerular Filt Rate > 60; Glucose 89 mg/dL (65-110); HDL Direct 33 mg/dL; Potassium 4.3 mmol/L (3.4-5.0); Sodium 135 mmol/L (137-145); Triglycerides 88 mg/dL (<150)
[2024-05-15 12:17] LABS: LDL Cholesterol Direct 72 mg/dL
[2024-05-15 12:30] LABS: Vitamin D 25 Hydroxy 24.3 ng/mL
== END 2024-05-15 10:22 | disposition home or self-care (01) ==
LOC: ANHGOSHLAB 10:22
PROVIDERS: PCP Clinical Nurse Specialist; Visit Provider Nurse Practitioner
DX: Z13.29 Encounter for screening for other suspected endocrine disorder (principal); Z13.220 Encounter for screening for lipoid disorders; E55.9 Vitamin D deficiency, unspecified
CPT/HCPCS: 36415; 80053; 80061; 82306; 85025

== ENCOUNTER 2025-04-22 12:52 | Emergency (ER) | payer BC, SELFPAY ==
--- NOTE | ~2025-04-22 | XR_ITS ---
EXAMINATION: XR chest 2V, 04/22/2025 13:45 [employer] HISTORY: chest pain COMPARISON: No comparisons available. Technique: 2 views obtained. Findings: The lungs are clear, no effusion. No pneumothorax. Heart is normal size. Mediastinal and hilar contours are within normal limits. Bony thorax no acute abnormality. Impression: No acute cardiopulmonary abnormality. Reviewed, dictated and finalized at location P. ED [employer] Impression: No acute cardiopulmonary abnormality.
[2025-04-22 12:59] VITALS: BP 149/101; PULSE 86; RESP 16; TEMP 36.5; O2SAT 100
--- NOTE | 2025-04-22 13:00 | ECG_ITS ---
Test Date: 2025-04-22 13:06:56 Measurements Intervals [place] Rate: 73 P: 58 OH: 174 QRS: 7 QRSD: 76 T: 31 QT: 387 QTc: 427 Interpretive Statements SINUS RHYTHM WITH SINUS ARRHYTHMIA DELAYED PRECORDIAL R/S TRANSITION BORDERLINE ECG No previous ECG available for comparison Electronically Signed On 04-22-2025 13:08:36 CRUDE TESTER by Jamel Hi D.O.
[2025-04-22 13:39] VITALS: BP 115/102; PULSE 76; RESP 16; O2SAT 100
--- NOTE | 2025-04-22 14:11 | ED.GENADULT ---
HPI - General Adult General Chief complaint: Recheck/Abnormal Lab/Rx Stated complaint: high BP, CP, headache, vomit Time Seen by Provider: 04/22/25 13:25 History of Present Illness HPI narrative: Patient is a 35-year-old female who presents ER with concerns for elevated blood pressure. When she uses her wrist cuff she has had systolic blood pressures in the 180s in 200s today. Over last day she has also had some mild headache with occasional nausea vomiting. Diarrhea x1 yesterday. She also reports aching chest pain since approximately 11:00 a.m.. No history of RI. She does not take any blood pressure medicine at this time. No pain with deep breath. No productive cough. Related Data Home Medications ?Medication ?Instructions ?Recorded ?Confirmed ?Last Taken ?Type multivitamin 1 tablet PO DAILY 12/20/21 11/13/24 Unknown History montelukast 10 mg tablet 10 mg PO DAILY 09/09/23 11/13/24 Unknown History (Singulair) cetirizine 10 mg tablet (Zyrtec) 10 mg PO DAILY PRN 11/13/24 11/13/24 Unknown History cholecalciferol (vitamin D3) 125 125 mcg PO DAILY 11/13/24 11/13/24 Unknown History mcg (5,000 unit) capsule levonorgestrel (Mirena) 1 device intrauterine ONCE 11/13/24 Unknown History Allergies Allergy/AdvReac Type Severity Reaction Status Date / Time doxycycline Allergy Unknown Rash Verified 04/22/25 12:54 Review of Systems Review of Systems: All systems reviewed & are unremarkable except as noted in HPI and below Constitutional: Constitutional: Reports no additional constitutional complaints Cardiovascular: Cardiovascular: Reports no additional cardiovascular complaints Respiratory: Respiratory: Reports no additional respiratory complaints Gastrointestinal: Gastrointestinal: Reports no additional gastrointestinal complaints Musculoskeletal: Musculoskeletal: Reports no additional musculoskeletal complaints [facility] Past Medical History Medical History (Updated 04/22/25 @ 20:35 by Bakari Oneal MD) Stress bladder incontinence, female Pelvic floor dysfunction in female CVA (cerebral vascular accident) Hypertension Migraine GERD (gastroesophageal reflux disease) Surgical History Surgical History (Updated 11/13/24 @ 10:50 by Elli Estrada [facility]) H/O ovarian cystectomy (~12/2023) 3 removed History of appendectomy 2011 Family History Family History (Updated 11/13/24 @ 10:52 by Elli Estrada CMA) Son Asthma Grandparent Hypertension Lung cancer Mother Diabetes mellitus Hypertension Father Diabetes mellitus Hypertension Social History Social History Social History: Caffeine-daily Smoking status: Never smoker Alcohol intake: current Alcohol use details: Social Substance use: never Substance use type: does not use Lack of Transportation: No Lack of Food: Often True Current Housing: I Have Housing Concerned About Future Housing: No Difficulty Paying Gas/Electric Bills: No Difficulty Paying for Meds: No Currently Unemployed: No Education: Master's Degree or Higher Difficulty w/ Childcare or Family Care: No Living arrangements: with family Spiritual care concerns: No Exam Narrative: GENERAL: Well-appearing, well-nourished, and in no acute distress. HEAD: Normocephalic, atraumatic. ENT: Mucous membranes moist. CHEST: Clear to auscultation. No respiratory distress. HEART: Regular rate and rhythm. Normal peripheral pulses. ABDOMEN: Soft, nontender, nondistended. EXTREMITIES: Normal range of motion. No edema. SKIN: Warm, dry, no rash. NEURO: Alert and oriented x3. PSYCH: Normal mood and affect. Course Course Emergency Course: Normal blood pressure here. Hydrated. Headache and nausea addressed with Toradol and Zofran. Appropriate for discharge home. Vital Signs Vital signs: Vital Signs Temperature 97.7 F 04/22/25 12:59 Pulse Rate 86 04/22/25 12:59 Respiratory Rate 16 04/22/25 12:59 Blood Pressure 149/101 H 04/22/25 12:59 Pulse Oximetry 100 04/22/25 12:59 Temperature 97.7 F 04/22/25 12:59 Pulse Rate 72 04/22/25 17:31 Respiratory Rate 13 04/22/25 17:31 Blood Pressure 125/102 H 04/22/25 17:31 Pulse Oximetry 100 04/22/25 17:31 MDM Differential Diagnosis Differential Diagnosis: Viral syndrome, gastroenteritis, ACS, pneumonia, sepsis, hypertensive crisis, generalized headache Lab Data 04/22/25 18:16 04/22/25 14:50 Labs: Lab Results 04/22/25 04/22/25 04/22/25 Range/Units 14:49 14:50 18:16 WBC 6.6 (4.5-10.0) K/mm3 RBC 4.37 (4.2-5.4) M/mm3 Hgb 13.3 (12.0-15.0) g/dL Hct 39.8 (37.0-47.0) % MCV 91.1 (80-100) fl MCH 30.4 (26-34) pg MCHC 33.4 (32-36) g/dl RDW 12.1 (11.5-14.5) % Plt Count 303 (150-375) k/mm3 MPV 8.6 (7.4-10.4) fl Immature Gran % (Auto) 0.2 (0-0.5) % Neut % (Auto) 39.7 L (45.5-73.1) % Lymph % (Auto) 54.9 H (18.3-44.2) % Gregg % (Auto) 4.1 (2.6-8.5) % Eos % (Auto) 0.9 (0-4.4) % Baso % (Auto) 0.2 (0.2-1.2) % Lymph # (Auto) 3.61 H (0.9-3.2) K/mm3 Gregg # (Auto) 0.3 (0.1-0.6) K/mm3 Eos # (Auto) 0.1 (0-0.3) K/mm3 Baso # (Auto) 0.0 (0.0-0.1) K/mm3 Abs Immat Gran (auto) 0.01 (0.00-0.031) K/mm3 Absolute Neuts (auto) 2.6 (1.3-6.7) K/mm3 Absolute Nucleated RBC 0.000 (0.0-0.012) K/mm3 Nucleated RBC % 0.0 (0.0-0.2) % PT Cancelled 14.8 H INR Cancelled 1.1 APTT Cancelled 30.1 Sodium 134 L (137-145) mmol/L Potassium 3.9 (3.4-5.0) mmol/L Chloride 107 (98-107) mmol/L Carbon Dioxide 19 L (22-30) mmol/L Anion Gap 8 (4-12) mmol/L BUN 10 (7-17) mg/dL Creatinine 0.74 (0.7-1.0) mg/dL Estim Creat Clear Calc 86 ml/min Estimated GFR > 60 (59 - ) Glucose 78 (65-110) mg/dL Calcium 8.9 (8.4-10.2) mg/dL Total Bilirubin 0.5 (0.2-1.3) mg/dL AST 24 (14-36) U/L ALT 16 (6-35) U/L Alkaline Phosphatase 91 (38-126) U/L Troponin I < 0.012 (0.000-0.034) ng/mL Total Protein 8.2 (6.3-8.2) g/dL Albumin 4.2 (3.5-5.1) g/dL Lipase 280 (23-300) U/L Imaging Data Radiologist's impression: ITS Impressions Chest X-Ray 04/22/25 13:54 Impression: No acute cardiopulmonary abnormality. ECG Data EKG #1: ECG completion date: 04/22/25 ECG completion time: 13:06 normal rate (73), sinus rhythm, no ectopy, normal QRS and normal QT Discharge Plan Discharge Clinical Impression: Headache, Elevated blood pressure reading Patient Disposition: Home Condition: Stable Instructions: General Headache (ED) Additional Instructions: Try to stay well hydrated at home. Please return to the emergency department if you develop worsening of your headache or a new headache which is severe, associated with vision changes, associated with neck stiffness or fever, or if it is different from any other headache that you have had before. Return to the emergency department if you develop numbness, weakness or tingling or problems with coordination, or if you develop severe nausea and vomiting and are unable to keep down fluids at home. Take Tylenol and ibuprofen as needed for pain at home. Patient Language: Serbian Prescriptions: No Action multivitamin Tablet 1 tablet PO DAILY cetirizine [Zyrtec] 10 mg tablet 10 mg PO DAILY PRN cholecalciferol (vitamin D3) 125 mcg (5,000 unit) capsule 125 mcg PO DAILY ketoconazole 2 % shampoo 1 applic topical 3XW PRN (Reason: dermatitis) Qty: 120 0RF Ubrelvy 100 mg tablet 100 mg PO ONCE PRN (Reason: Migraines) Qty: 14 3RF aspirin [Adult Aspirin Regimen] 81 mg tablet,delayed release (DR/EC) 81 mg PO DAILY Qty: 90 3RF Mirena 21 mcg/24hr (up to 8 yrs) 52 mg intrauterine device 1 device intrauterine ONCE Rx Instructions: as a single dose montelukast [Singulair] 10 mg tablet 10 mg PO DAILY Follow-up/Referrals: Clotilde Pratt APRN [Primary Care Provider, Internal Medicine] - 1 Week
--- NOTE | 2025-04-22 14:31 | PC.NURSE ---
Unable to obtain IV ad labs. Arturo from vascular access called and arrived at bedside.
[2025-04-22] MEDS: SODIUM CHLORIDE 0.9% IV 1,000 ML 999 ML IV CONT ×2 (14:54→16:29)
[2025-04-22] MEDS: ONDANSETRON INJ 4 MG/2 ML VIAL IV PUSH (14:54)
[2025-04-22] MEDS: KETOROLAC 30 MG/ML VIAL (*BKC) IV PUSH (14:54)
--- NOTE | 2025-04-22 15:00 | PC.NURSE ---
Vascular access unable to obtain labs. Phlebotomy called. Provider aware
[2025-04-22 15:07] LABS: Alanine Aminotransferase 16 U/L (6-35); Albumin Level 4.2 g/dL (3.5-5.1); Alkaline Phosphatase 91 U/L (38-126); Anion Gap 8 mmol/L (4-12); Aspartate Amino Transferase 24 U/L (14-36); Bilirubin,Total 0.5 mg/dL (0.2-1.3); Blood Urea Nitrogen 10 mg/dL (7-17); Calcium 8.9 mg/dL (8.4-10.2); Carbon Dioxide 19 mmol/L (22-30); Chloride 107 mmol/L (98-107); Estimated CRCL calculation 86 ml/min; Estimated Glomerular Filt Rate > 60; Glucose 78 mg/dL (65-110); Lipase 280 U/L (23-300); Potassium 3.9 mmol/L (3.4-5.0); Sodium 134 mmol/L (137-145); Total Protein 8.2 g/dL (6.3-8.2)
[2025-04-22 15:50] LABS: Troponin I < 0.012 ng/mL (0.000-0.034)
[2025-04-22 17:31] VITALS: BP 125/102; PULSE 72; RESP 13; O2SAT 100
[2025-04-22 18:28] LABS: Hematocrit 39.8 % (37.0-47.0); Hemoglobin 13.3 g/dL (12.0-15.0); Immature Granulocyte Percent A 0.2 % (0-0.5); Lymphocytes Absolute Auto 3.61 K/mm3 (0.9-3.2); Mean Corpuscular HGB Conc 33.4 g/dl (32-36); Mean Corpuscular Hemoglobin 30.4 pg (26-34); Mean Corpuscular Volume 91.1 fl (80-100); Nucleated Red Blood Cells Absolute Auto 0.000 K/mm3 (0.0-0.012); Nucleated Red Blood Cells Perc 0.0 % (0.0-0.2); Platelet Count Result 303 k/mm3 (150-375); Red Blood Count 4.37 M/mm3 (4.2-5.4); White Blood Count 6.6 K/mm3 (4.5-10.0)
[2025-04-22 18:39] LABS: INR 1.1; Prothrombin Time 14.8 Seconds (11.1-14.7)
[2025-04-22 18:40] LABS: Partial Thromboplastin Time 30.1 Seconds (22.3-36.8)
== END 2025-04-22 21:23 | disposition home or self-care (01) ==
PROVIDERS: Emergency Provider Emergency Medicine; PCP Nurse Practitioner
DX: R51.9 Headache, unspecified (principal); I10 Essential (primary) hypertension; K21.9 Gastro-esophageal reflux disease without esophagitis; Z86.73 Personal history of transient ischemic attack (TIA), and cerebral infarction without residual deficits
CPT/HCPCS: 36415; 71046; 80053; 83690; 84484; 85025; 85610; 85730; 93005; 96361; 96374; 96375; 99284; J1885; J2405; J7030